=== PATIENT | female | born 1970 | race Caucasian/White ===

== ENCOUNTER → 2017-07-07 | Outpatient (CLI) | payer OTHER ==
--- NOTE | ~2017-07-07 | US128 ---
[id number] [facility] [address]. [place], [place] [address] [id number] O MR#: [id number] Acc #: [id number] NAME: CHALINO LANDRUM : 1970 SEX: F STUDY DATE/TIME: 07/07/2017 15:43 UNIT: [facility]US ROOM: STUDY DESCRIPTION: US Thyroid Attending Physician: Faviola Kaufman M.D. Referring Physician: Faviola Kaufman M.D. Ordering Physician: Faviola Kaufman M.D. Primary Care Physician: Faviola Kaufman M.D. MEDICAL IMAGING REPORT This report is preliminary unless electronic signature is present EXAM Thyroid ultrasound, 07/07/2017. COMPARISON Prior ultrasound dated 05/11/2015. CLINICAL HISTORY Routine followup for asymptomatic thyroid nodule. FINDINGS On the right, the gland is overall homogeneous in echotexture. There is a 2 mm hypoechoic structure at the lower pole, but no discrete nodule. On the left, the gland is homogeneous in echotexture without discrete nodule. Stable redemonstrated tiny 2 mm hypoechoic structure in the lower pole of the right lobe of the gland of doubtful significance. No new or solid nodule, no interval change since the study of 05/11/2015. No indication for tissue sampling at this time. Dictated by... Luciano Forrester M.D. THIS IS AN ELECTRONICALLY VERIFIED REPORT Luciano Forrester M.D. at 07/11/2017 4:52 PM COCO/seema TD: 07/08/2017 14:11 JOB #: [id number] MEDICAL IMAGING REPORT Page 1 of 1 COPY
== END | disposition home or self-care (01) ==
LOC: CGUS 13:30
DX: E04.1 Nontoxic single thyroid nodule (principal)
CPT/HCPCS: 76536